=== PATIENT | male | born 1980 | race Caucasian/White ===

== ENCOUNTER 2017-10-22 14:31 | Emergency (ER) | payer OTHER, MEDICAID, SELFPAY ==
[2017-10-22 14:33] VITALS: BP 117/65; PULSE 67; RESP 14; TEMP 36.3; O2SAT 98; BMI 20.9
== END 2017-10-22 17:33 | disposition left against medical advice (07) ==
LOC: ED 14:39
PROVIDERS: Emergency Provider Internal Medicine; PCP Family Medicine
DX: K13.79 Other lesions of oral mucosa (principal)
CPT/HCPCS: 99281; 99282

== ENCOUNTER 2017-11-25 06:52 | Emergency (ER) | payer OTHER, MEDICAID, SELFPAY ==
[2017-11-25 07:02] VITALS: BP 125/81; PULSE 74; RESP 16; TEMP 36.3; O2SAT 100
--- NOTE | 2017-11-25 07:31 | ED.DENTAL ---
HPI - Dental/Oral General Chief complaint: Dental/Oral Stated complaint: severe jaw pain History of Present Illness HPI Narrative: HPI 35-year-old male with poor dentition presents for evaluation of 2+ months of left maxillary discomfort that worsened overnight interfering with sleep. Patient took 200 mg ibuprofen prior to arrival. Patient had a root canal in the affected area, has fractured teeth, and has scheduled follow-up with a dentist in approximately one month. Patient denies fevers, chills, headache, neck stiffness, difficulty swallowing. M/S/F/SocHx notable for: please see HPI; remainder reviewed with patient and in chart. ROS: Negative constitutional, eye, cardiovascular, pulmonary, GI, , MSK, skin, neurologic, psychiatric, endocrine unless noted in the HPI. Exam HR 74, BP 125/81, RR 16, T 97.3 ?F, SaO2 100 % on room air. Gen: Pleasant, non-toxic appearing, resting comfortably HEENT: NC, AT, PEERL, EOMI. Mouth: globally poor dentition, left maxillary jaw with a fractured molar and absent teeth, but no significant gumline swelling or tenderness percussion. No periapical swelling or tenderness to palpation. Floor of the mouth soft without swelling or tongue elevation, no peritonsilar swelling bilaterally, uvula midline, moist mucus membranes without lesions, tongue without plaques or lesions,gumline without significant ulcerations, no bleeding, no marked halitosis. Neck: Supple with a full range of motion, no swelling, no difficulty swallowing. Resp: normal work of breathing, unlabored respirations. Card: extremities warm and well perfused. GI: non-distended MSK: No visible deformities, strength and tone without visually appreciable deficit. Skin: Normal color with no visible lesions. Neuro: AO x 3, no facial asymmetry, vision and hearing WNL. Psych: Mood and affect appropriate. MDM Previous chart, nursing note, and vitals reviewed. A: 35-year-old male with poor dentition presents for evaluation of 2+ months of left maxillary discomfort that worsened overnight interfering with sleep. DDX: caries, pulpitis, gingivitis, periodontitis, periapical abscess, jaw osteomyelitis, Ludgwig's angina, acute necrotizing gingivitis. ED Course: Reassuringly, the patient?s exam is without findings consistent with Suleiman?s angina, nor were there evidence of clinically significant abscesses. The gumline was without gross abnormalities. Suspect the patient?s dental pain is secondary to the poor dentition, caries, and a likely periapical abscess. [As the patient is not presently intending to seek dental care in the mid to near future opiate analgesics are not appropriate, the patient was instructed to use OTC pain medications. Furthermore, as the patient has had stable symptoms for an extended period time, no clear evidence of infection, and significant time interval prior to seeing a dentist antibiotics are not felt to be presently warranted. Patient instructed to contact his dentist in attempt to expedite his follow-up. Impression: Dental Pain (please reference below for remainder of encounter information) Patient was notified of their elevated blood pressure and recommended to follow up with their primary care physician. As the patient is without evidence of acute end organ dysfunction no further emergent evaluation is indicated as per the 2013 [facility] clinical policy. Related Data Previous Rx's Medication Instructions Recorded cyclobenzaprine 10 mg PO HS PRN #20 tab 07/29/17 Allergies Allergy/AdvReac Type Severity Reaction Status Date / Time No Known Drug Allergies Allergy Verified 11/25/17 07:02 [facility] Social History Smoking Status: Current every day smoker Exam Initial Vital Signs Initial Vital Signs: Vital Signs Temperature 97.3 F L 11/25/17 07:02 Pulse Rate 74 11/25/17 07:02 Respiratory Rate 16 11/25/17 07:02 Blood Pressure 125/81 H 11/25/17 07:02 Pulse Oximetry 100 11/25/17 07:02 Course Vital Signs - 8 hr 11/25/17 07:02 Temperature 97.3 F L Pulse Rate 74 Respiratory Rate 16 Blood Pressure 125/81 H Pulse Oximetry 100 Discharge Plan Departure Prescriptions: No Action cyclobenzaprine 10 MG tablet 10 mg PO HS PRNQty: 20 RF: 0
--- NOTE | 2017-12-01 09:45 | PC.NURSE ---
attempted callback, pt not available
== END 2017-11-25 07:43 | disposition home or self-care (01) ==
PROVIDERS: Emergency Provider Emergency Medicine; PCP Family Medicine
DX: K08.89 Other specified disorders of teeth and supporting structures (principal)
CPT/HCPCS: 99282

== ENCOUNTER → 2020-01-15 11:24 | Outpatient (CLI) | payer OTHER, MEDICAID, SELFPAY ==
[2020-01-15 11:56] LABS: Hematocrit 46.2 % (41-53); Hemoglobin 15.8 g/dL (13.5-17.5); Mean Corpuscular HGB Conc 34.2 % (30-36); Mean Corpuscular Hemoglobin 30.4 PG (26-34); Mean Corpuscular Volume 88.8 fL (80-100); Platelet Count 191 X10^3/uL (150-400); White Blood Cell Count 5.8 X10^3/uL (4.5-11.0)
[2020-01-15 12:10] LABS: Alanine Aminotransferase 24 IU/L (<50); Albumin 4.4 g/dL (3.5-5.0); Albumin Globulin Ratio 1.5 (1.0-2.8); Alkaline Phosphatase 53 U/L (38-126); Aspartate Aminotransferase 31 IU/L (17-59); BUN Creatinine Ratio 15.9 (6-22); Bilirubin Total 0.4 mg/dL (0.2-1.3); Blood Urea Nitrogen 17 mg/dL (9-20); Calcium 9.1 mg/dL (8.4-10.2); Carbon Dioxide 31 mmol/L (22-32); Chloride 104 mmol/L (98-107); Cholesterol 172 mg/dL (140-199); Estimated Glomerular Filt Rate > 60.0 mL/min (>60); Glucose 97 mg/dL (70-100); HDL Cholesterol 62 mg/dL (40-60); HEMOLYSIS < 15 (0-50); LDL Cholesterol Calculated 96 mg/dL (<100); Potassium 4.5 mmol/L (3.4-5.1); Sodium 140 mmol/L (137-145); Total Protein 7.4 g/dL (6.3-8.2); Triglycerides 70 mg/dL (35-150)
[2020-01-15 13:31] LABS: Free T4, Direct Thyroxine 0.95 ng/dL (0.78-2.19)
[2020-01-15 13:44] LABS: Thyroid Stimulating Hormone 1.98 uIU/mL (0.47-4.68)
== END ==
PROVIDERS: PCP Nurse Practitioner; Referring Provider Nurse Practitioner; Visit Provider Nurse Practitioner
DX: R25.2 Cramp and spasm (principal); Z00.00 Encounter for general adult medical examination without abnormal findings
CPT/HCPCS: 36415; 80053; 80061; 83735; 84439; 84443; 85027

== ENCOUNTER → 2021-05-07 09:43 | Outpatient (CLI) | payer OTHER, MEDICAID, SELFPAY ==
[2021-05-07 11:56] LABS: Semen Sperm Prescence Post-Vas Absent (ABSENT)
== END ==
PROVIDERS: PCP Nurse Practitioner; Referring Provider Family Medicine; Visit Provider Family Medicine
DX: Z98.52 Vasectomy status (principal)
CPT/HCPCS: 89321

== ENCOUNTER → 2021-08-18 08:46 | Outpatient (CLI) | payer OTHER, MEDICAID, SELFPAY ==
[2021-08-18 10:15] LABS: Hematocrit 45.1 % (41-53); Hemoglobin 15.6 g/dL (13.5-17.5); Mean Corpuscular HGB Conc 34.7 % (30-36); Mean Corpuscular Hemoglobin 30.8 PG (26-34); Mean Corpuscular Volume 88.9 fL (80-100); Platelet Count 178 X10^3/uL (150-400); Red Blood Cell Count 5.07 X10^6/uL (4.5-5.9); White Blood Cell Count 6.7 X10^3/uL (4.5-11.0)
[2021-08-18 10:25] LABS: Alanine Aminotransferase 30 IU/L (<50); Albumin 4.4 g/dL (3.5-5.0); Albumin Globulin Ratio 1.5 (1.0-2.8); Alkaline Phosphatase 47 U/L (38-126); Aspartate Aminotransferase 36 IU/L (17-59); BUN Creatinine Ratio 15.1 (6-22); Bilirubin Total 0.4 mg/dL (0.2-1.3); Blood Urea Nitrogen 18 mg/dL (9-20); Calcium 9.2 mg/dL (8.4-10.2); Carbon Dioxide 33 mmol/L (22-32); Chloride 106 mmol/L (98-107); Cholesterol 168 mg/dL (140-199); Estimated Glomerular Filt Rate > 60 mL/min (>60); Globulin 2.9 g/dL (1.7-4.1); Glucose 96 mg/dL (70-100); HDL Cholesterol 71 mg/dL (40-60); HEMOLYSIS < 15 (0-50); LDL Cholesterol Calculated 88 mg/dL (<100); Potassium 4.3 mmol/L (3.4-5.1); Sodium 142 mmol/L (137-145); Total Protein 7.3 g/dL (6.3-8.2); Triglycerides 44 mg/dL (35-150)
[2021-08-18 10:45] LABS: Free T4, Direct Thyroxine 1.28 ng/dL (0.78-2.19)
[2021-08-18 10:58] LABS: Thyroid Stimulating Hormone 1.38 uIU/mL (0.47-4.68)
== END ==
PROVIDERS: PCP Nurse Practitioner; Referring Provider Nurse Practitioner; Visit Provider Nurse Practitioner
DX: Z00.00 Encounter for general adult medical examination without abnormal findings (principal)
CPT/HCPCS: 36415; 80053; 80061; 84439; 84443; 84481; 85027

== ENCOUNTER → 2022-08-10 10:41 | Outpatient (CLI) | payer OTHER, MEDICAID, SELFPAY ==
--- NOTE | 2022-08-10 10:43 | DI.RAD.S_ITS ---
PROCEDURE: XR RIBS RT MIN 3V W CXR 1V INDICATIONS: Rib pain TECHNIQUE: 2 views of the right ribs were acquired, along with a single view chest. COMPARISON: None. FINDINGS: Surgical changes and devices: None. Bones and chest wall: No fractures or dislocations. No suspicious bony lesions. Overlying soft tissues appear unremarkable. Lungs and pleura: No pleural effusions or pneumothorax. Lungs appear clear. Mediastinum: Mediastinal contours appear normal. Heart size is normal. IMPRESSION: No displaced rib fractures. Dictated by: Kboy Sanford M.D. on 08/10/2022 at 15:58 Approved by: Koby Sanford M.D. on 08/10/2022 at 15:59
== END ==
PROVIDERS: PCP Nurse Practitioner; Referring Provider Nurse Practitioner Family; Visit Provider Nurse Practitioner Family
DX: R07.81 Pleurodynia (principal)
CPT/HCPCS: 71101